=== PATIENT | male | born 1980 | race Caucasian/White ===

== ENCOUNTER 2020-09-03 13:12 | Emergency (ER) | payer BC ==
[~2020-09-03] VITALS: Ht 177.8 cm; Wt 68.0 kg
[2020-09-03 14:26] VITALS: BP 147/98
[2020-09-03] MEDS ORDERED: traMADol HCL 50 MG TAB PO ONE (14:30)
[2020-09-03] MEDS ORDERED: KETOROLAC TROMETH 30 MG/ML 1ML VIAL IV ONE (17:00)
[2020-09-03 17:05] LABS: Basophils # (auto) 0.1 10 ^3/uL (0-0.2); Basophils % (auto) 1.5 % (0.0-2.0); Eosinophils # (auto) 0.2 10 ^3/uL (0-0.8); Hematocrit 45.7 % (41.0-53.0); Hemoglobin 15.8 g/dL (13.5-17.5); Lymphocytes # (auto) 2.2 10 ^3/uL (0.4-5.4); Lymphocytes % (auto) 22.8 % (10.0-50.0); Mean Corpuscular Hemoglobin 32.6 pg (28.0-32.0); Mean Corpuscular Hgb Conc. 34.5 g/dL (32.0-36.0); Mean Corpuscular Volume 94.6 fL (80.0-100.0); Monocytes # (auto) 0.7 10 ^3/uL (0-1.3); Monocytes % (auto) 7.3 % (0.0-12.0); Neutrophils # (auto) 6.3 10 ^3/uL (1.6-8.6); Neutrophils % (auto) 66.4 % (37.0-80.0); Platelet Count (auto) 245 10^3/uL (140-450); Red Blood Cells 4.83 10^6/uL (4.5-5.90); Red Cell Distribution Width 13.4 % (11.8-14.3); White Blood Cell 9.6 10^3/uL (4.4-10.8)
[2020-09-03 17:23] LABS: Albumin 3.7 g/dL (3.4-5.0); Calcium 8.5 mg/dL (8.5-10.1); Potassium 3.6 mmol/L (3.5-5.1)
[2020-09-03 17:45] LABS: Total Protein 7.2 g/dL (6.4-8.2)
[2020-09-03 18:00] LABS: Bilirubin, Total 0.5 mg/dL (0.2-1.0)
[2020-09-03] MEDS ORDERED: CLINDAMYCIN 600MG IV 50 ML IV ONE (18:45)
== END 2020-09-03 19:32 | disposition left against medical advice (07) ==
LOC: ER 13:12
DX: L03.011 Cellulitis of right finger (principal); M86.9 Osteomyelitis, unspecified; F17.210 Nicotine dependence, cigarettes, uncomplicated; Z20.822 Contact with and (suspected) exposure to COVID-19
CPT/HCPCS: 36415; 73200; 80053; 85025; 87426; 96365; 96375; 99284; C9803; J1885; J3490; U0003; 96361; 96374